=== PATIENT | male | born 1970 | race Caucasian/White ===

== ENCOUNTER 2022-08-14 15:38 | Inpatient (IN) | payer OTHER ==
[~2022-08-14] VITALS: Ht 177.8 cm; Wt 78.9 kg
[2022-08-14] MEDS ORDERED: FAMOTIDINE 20 MG/2 ML VIAL IV STA (15:56)
[2022-08-14] MEDS ORDERED: DICYCLOMINE HCL 20 MG TAB PO ONE (16:00)
[2022-08-14 16:13] LABS: BASOPHILS # (AUTO) 0.1 (0.0-0.1); BASOPHILS % 0.4 % (0.0-1.0); EOSINOPHILS % 0.3 % (0.0-6.0); HEMATOCRIT 49.7 % (38.2-49.6); HEMOGLOBIN 16.6 g/dL (14.0-18.0); LYMPHOCYTES # (AUTO) 1.5 (1.0-3.2); LYMPHOCYTES % 12.5 % (18.0-39.1); MEAN CORPUSCULAR HGB CONC 33.4 g/dL (31-35); MEAN CORPUSCULAR VOLUME 86.7 fL (81-99); MONOCYTES # (AUTO) 0.7 (0.2-0.8); MONOCYTES % 5.7 % (4.4-11.3); NEUTROPHILS # (AUTO) 9.3 (2.1-6.9); NEUTROPHILS % 80.8 % (38.7-80.0); PLATELET COUNT 197 x10e3/uL (140-360); RED BLOOD COUNT 5.73 x10e6/uL (4.3-5.7); RED CELL DISTRIBUTION WIDTH 12.8 % (11.7-14.4)
[2022-08-14 16:31] LABS: LIPASE 151 U/L (8-78)
[2022-08-14 16:33] LABS: ALBUMIN 4.3 g/dL (3.5-5.0); ALBUMIN/GLOBULIN RATIO 1.3 (0.8-2.0); ANION GAP 18.9 mmol/L (8-16); CALCIUM 9.7 mg/dL (8.4-10.2); CREATININE, SERUM 1.19 mg/dL (0.72-1.25); POTASSIUM 3.9 mmol/L (3.5-5.1)
[2022-08-14 16:49] LABS: CLARITY,URINE CLEAR (CLEAR); COLOR,URINE YELLOW (YELLOW); KETONES,URINE 1+ (NEGATIVE); LEUKOCYTE ESTERASE ,URINE NEGATIVE (NEGATIVE); NITRITE,URINE NEGATIVE (NEGATIVE); PROTEIN,URINE DIPSTICK NEGATIVE (NEGATIVE); URINE UROBILINOGEN 0.2 mg/dL (0.2 - 1)
[2022-08-14 17:01] LABS: BACTERIA,URINE MODERATE /HPF; EPITHELIAL CELLS,URINE FEW /LPF; RBC,URINE 0-5 /HPF (0-5)
[2022-08-14] MEDS ORDERED: ONDANSETRON HCL INJ 2MG/ML 2ML 2 MG/ML VIAL IV STA (17:57)
[2022-08-14] MEDS ORDERED: Morphine 4mg INJECTION 4 MG/ML INJ IV ONE (18:00)
[2022-08-14] MEDS ORDERED: ONDANSETRON HCL INJ 2MG/ML 2ML 2 MG/ML VIAL IV PRN (18:15)
[2022-08-14] MEDS ORDERED: SODIUM CHLORIDE FLUSH 10 ML SYR INJ PRN (18:15)
[2022-08-14] MEDS: SODIUM CHLORIDE 0.9% 1000ML 1,000 ML IV SCH (18:21)
[2022-08-14] MEDS ORDERED: SODIUM CHLORIDE 0.9% 1000ML 1,000 ML ONE (18:24)
[2022-08-14] MEDS ORDERED: LOVAZA1 GM PO (18:26)
[2022-08-14] MEDS ORDERED: JARDIANCE25 MG PO (18:26)
[2022-08-14] MEDS ORDERED: CLOPIDOGREL75 MG PO (18:26)
[2022-08-14] MEDS ORDERED: ATORVASTATIN CA20 MG PO (18:26)
[2022-08-14] MEDS ORDERED: LOSARTAN POTASS25 MG PO (18:26)
[2022-08-14] MEDS ORDERED: METFORMIN HCL500 MG PO (18:26)
[2022-08-14 20:00] VITALS: BP 149/84
[2022-08-14] MEDS ORDERED: ASPIRIN81 MG PO (21:55)
[2022-08-14] MEDS: Morphine 4mg INJECTION 4 MG/ML INJ IV PRN (22:11)
[2022-08-14] MEDS: LOSARTAN POTASSIUM 25 MG TAB PO SCH (22:23)
[2022-08-14] MEDS ORDERED: ACETAMINOPHEN 325 MG TAB PO PRN (23:30)
[2022-08-14] MEDS ORDERED: TEMAZEPAM 7.5 MG CAP PO PRN (23:30)
[2022-08-14] MEDS ORDERED: HYDRALAZINE HCL 20 MG/ML VIAL IV PRN (23:30)
[2022-08-15] VITALS (8 sets, daily range): BP systolic 113–162; BP diastolic 61–82
[2022-08-15] MEDS: SODIUM CHLORIDE 0.9% 1000ML 1,000 ML IV SCH ×3 (03:33→16:11)
[2022-08-15 06:09] LABS: BASOPHILS # (AUTO) 0.1 (0.0-0.1); BASOPHILS % 0.4 % (0.0-1.0); EOSINOPHILS # (AUTO) 0.2 (0.0-0.4); EOSINOPHILS % 1.7 % (0.0-6.0); HEMATOCRIT 46.9 % (38.2-49.6); HEMOGLOBIN 16.9 g/dL (14.0-18.0); LYMPHOCYTES # (AUTO) 1.3 (1.0-3.2); LYMPHOCYTES % 9.3 % (18.0-39.1); MEAN CORPUSCULAR HEMOGLOBIN 29.3 pg (28-32); MEAN CORPUSCULAR VOLUME 81.3 fL (81-99); MONOCYTES # (AUTO) 1.1 (0.2-0.8); MONOCYTES % 8.1 % (4.4-11.3); NEUTROPHILS % 79.8 % (38.7-80.0); PLATELET COUNT 184 x10e3/uL (140-360); RED BLOOD COUNT 5.77 x10e6/uL (4.3-5.7); RED CELL DISTRIBUTION WIDTH 12.6 % (11.7-14.4)
[2022-08-15 06:41] LABS: ANION GAP 18.9 mmol/L (8-16); CALCIUM 9.2 mg/dL (8.4-10.2); CREATININE, SERUM 1.05 mg/dL (0.72-1.25); POTASSIUM 3.9 mmol/L (3.5-5.1)
[2022-08-15 06:56] LABS: CHOL/HDL RATIO 3.5 (3.9-4.7); MAGNESIUM 1.9 MG/DL (1.3-2.1); PHOSPHORUS 3.4 MG/DL (2.3-4.7)
[2022-08-15 07:17] LABS: THYROID STIMULATING HORMONE 0.714 uIU/mL (0.350-4.940)
[2022-08-15] MEDS: Morphine 4mg INJECTION 4 MG/ML INJ IV PRN (07:28)
[2022-08-15] MEDS ORDERED: BUPIVACAINE 0.25% 30ML SDV ONE (12:46)
[2022-08-15] MEDS ORDERED: FENTANYL CITRATE/PF 100MCG/2 ML INJ ONE (16:56)
[2022-08-15] MEDS ORDERED: MIDAZOLAM HCL 2 MG/2 ML VIAL ONE (16:56)
[2022-08-15] MEDS ORDERED: DEXTROSE 50% SYRINGE 50 ML IV PRN (20:45)
[2022-08-15] MEDS: INSULIN LISPRO 100 UNIT/1 ML 3ML VIAL SQ SCH (21:00)
[2022-08-15] MEDS: LOSARTAN POTASSIUM 25 MG TAB PO SCH (21:05)
[2022-08-15] MEDS: METFORMIN HCL 500 MG TAB PO SCH (21:05)
[2022-08-15] MEDS: NON-FORMULARY MEDICATION (Empagliflozin (Jardiance) 25 MG) PO SCH (21:16)
[2022-08-15] MEDS: ATORVASTATIN 40 MG TAB PO SCH (21:20)
[2022-08-15] MEDS: CLOPIDOGREL BISULFATE 75 MG TAB PO SCH (21:20)
[2022-08-15] MEDS: OMEGA 3 POLYUNSAT FATTY ACIDS 1000 MG SOFTGEL PO SCH (21:20)
[2022-08-15] MEDS: ASPIRIN 81 MG CHEW TAB PO SCH (21:20)
[2022-08-16] VITALS (8 sets, daily range): BP systolic 104–130; BP diastolic 60–74
[2022-08-16] MEDS: SODIUM CHLORIDE 0.9% 1000ML 1,000 ML IV SCH ×3 (01:04→18:18)
[2022-08-16] MEDS: Morphine 4mg INJECTION 4 MG/ML INJ IV PRN ×4 (01:04→23:10)
[2022-08-16 06:04] LABS: BASOPHILS % 0.1 % (0.0-1.0); HEMATOCRIT 39.5 % (38.2-49.6); LYMPHOCYTES % 9.8 % (18.0-39.1); MEAN CORPUSCULAR HEMOGLOBIN 29.3 pg (28-32); MEAN CORPUSCULAR HGB CONC 35.4 g/dL (31-35); MEAN CORPUSCULAR VOLUME 82.6 fL (81-99); MONOCYTES % 9.1 % (4.4-11.3); NEUTROPHILS # (AUTO) 8.5 (2.1-6.9); NEUTROPHILS % 80.5 % (38.7-80.0); PLATELET COUNT 159 x10e3/uL (140-360); RED BLOOD COUNT 4.78 x10e6/uL (4.3-5.7); RED CELL DISTRIBUTION WIDTH 12.8 % (11.7-14.4)
[2022-08-16 06:49] LABS: ANION GAP 16.8 mmol/L (8-16); CALCIUM 8.3 mg/dL (8.4-10.2); CREATININE, SERUM 1.13 mg/dL (0.72-1.25); POTASSIUM 3.8 mmol/L (3.5-5.1)
[2022-08-16] MEDS: INSULIN LISPRO 100 UNIT/1 ML 3ML VIAL SQ SCH ×4 (07:30→21:00)
[2022-08-16] MEDS: CLOPIDOGREL BISULFATE 75 MG TAB PO SCH (09:00)
[2022-08-16] MEDS: OMEGA 3 POLYUNSAT FATTY ACIDS 1000 MG SOFTGEL PO SCH ×2 (09:00→17:00)
[2022-08-16] MEDS: METFORMIN HCL 500 MG TAB PO SCH ×2 (09:00→17:00)
[2022-08-16] MEDS: ASPIRIN 81 MG CHEW TAB PO SCH (22:08)
[2022-08-16] MEDS: NON-FORMULARY MEDICATION (Empagliflozin (Jardiance) 25 MG) PO SCH (22:08)
[2022-08-16] MEDS: LOSARTAN POTASSIUM 25 MG TAB PO SCH (22:09)
[2022-08-16] MEDS: ATORVASTATIN 40 MG TAB PO SCH (22:10)
[2022-08-17] VITALS: BP 176/87
[2022-08-17 00:02] VITALS: BP 155/81
[2022-08-17] MEDS: Morphine 4mg INJECTION 4 MG/ML INJ IV PRN (02:59)
[2022-08-17 04:00] VITALS: BP 119/77
[2022-08-17 07:11] LABS: BASOPHILS % 0.5 % (0.0-1.0); EOSINOPHILS # (AUTO) 0.1 (0.0-0.4); EOSINOPHILS % 0.8 % (0.0-6.0); HEMATOCRIT 42.5 % (38.2-49.6); HEMOGLOBIN 14.6 g/dL (14.0-18.0); LYMPHOCYTES # (AUTO) 2.1 (1.0-3.2); LYMPHOCYTES % 24.1 % (18.0-39.1); MEAN CORPUSCULAR HEMOGLOBIN 28.9 pg (28-32); MEAN CORPUSCULAR HGB CONC 34.4 g/dL (31-35); MEAN CORPUSCULAR VOLUME 84.2 fL (81-99); MONOCYTES # (AUTO) 0.9 (0.2-0.8); NEUTROPHILS # (AUTO) 5.6 (2.1-6.9); NEUTROPHILS % 64.1 % (38.7-80.0); PLATELET COUNT 148 x10e3/uL (140-360); RED BLOOD COUNT 5.05 x10e6/uL (4.3-5.7)
[2022-08-17] MEDS: INSULIN LISPRO 100 UNIT/1 ML 3ML VIAL SQ SCH (07:30)
[2022-08-17 07:41] LABS: CALCIUM 8.3 mg/dL (8.4-10.2); CREATININE, SERUM 1.02 mg/dL (0.72-1.25)
[2022-08-17] MEDS: CLOPIDOGREL BISULFATE 75 MG TAB PO SCH (09:00)
[2022-08-17] MEDS: METFORMIN HCL 500 MG TAB PO SCH (09:00)
[2022-08-17] MEDS: OMEGA 3 POLYUNSAT FATTY ACIDS 1000 MG SOFTGEL PO SCH (09:00)
[2022-08-17 09:08] VITALS: BP 119/77
[2022-08-17 09:10] VITALS: BP 153/74
[2022-08-17 11:54] VITALS: BP 136/74
[2022-08-17] MEDS ORDERED: PANTOPRAZOLE SOD 40 MG TABEC PO SCH (12:15)
[2022-08-17] MEDS ORDERED: ACETAMINOPHEN 325 MG TAB PO PRN (12:15)
[2022-08-17] MEDS ORDERED: PROTONIX40 MG/ML PO (12:29)
[2022-08-17] MEDS ORDERED: tylenol 3 PO (12:59)
[2022-08-17] MEDS ORDERED: BACTRIM DS TAB1 EACH PO (13:00)
[2022-08-17] MEDS ORDERED: POVIDONE IODINE 0.05% 0.05 % ML PO ONE (13:48)
[2022-08-17] MEDS ORDERED: DEXAMETHASONE SOD PHOS INJ 4 MG/ML SDV IV ONE (13:48)
[2022-08-17] MEDS ORDERED: ONDANSETRON HCL INJ 2MG/ML 2ML 2 MG/ML VIAL IV ONE (13:48)
[2022-08-17] MEDS ORDERED: ROCURONIUM BROMIDE 10 MG/ML 5ML VIAL IV ONE (13:48)
[2022-08-17] MEDS ORDERED: NEOSTIGMINE 1 MG/ML 10ML VIAL IV ONE (13:48)
[2022-08-17] MEDS ORDERED: LIDOCAINE HCL 2% LOCAL INJ 5 ML SDV VIAL INJ ONE (13:48)
[2022-08-17] MEDS ORDERED: EPHEDRINE SULFATE INJ 50 MG/ML VIAL IV ONE (13:48)
[2022-08-17] MEDS ORDERED: PROPOFOL IV EMULSION 10 MG/ML 20 ML VIAL IV ONE (13:48)
[2022-08-17] MEDS ORDERED: KETOROLAC TROMETHAMINE 30 MG/ML VIAL IV ONE (13:48)
[2022-08-17] MEDS ORDERED: GLYCOPYRROLATE INJ 0.2 MG/ML VIAL IV ONE (13:48)
[2022-08-17] MEDS ORDERED: SEVOFLURANE INHAL SOLN 250 ML PEN BTL INH ONE (13:48)
== END 2022-08-17 13:49 | disposition home or self-care (01) | DRG 340 ==
LOC: ER 15:45 → INTOOBSV 18:11 → ERHOLD 18:11 → MED/SURG3 20:06 → OBSVTOIN 08-16 16:47
PROVIDERS: ADMIT Internal Medicine; ATTEND Internal Medicine
PROC: 0DTJ4ZZ Resection of Appendix, Percutaneous Endoscopic Approach (ICD-10-PCS; principal; 2022-08-15 13:49)
DX: K35.32 Acute appendicitis with perforation, localized peritonitis, and gangrene, without abscess (principal); I10 Essential (primary) hypertension; E11.69 Type 2 diabetes mellitus with other specified complication; E78.5 Hyperlipidemia, unspecified; F17.210 Nicotine dependence, cigarettes, uncomplicated; K76.0 Fatty (change of) liver, not elsewhere classified; F12.90 Cannabis use, unspecified, uncomplicated; Z72.89 Other problems related to lifestyle; Z87.442 Personal history of urinary calculi; Z80.3 Family history of malignant neoplasm of breast; Z84.89 Family history of other specified conditions; Z90.5 Acquired absence of kidney; Z20.822 Contact with and (suspected) exposure to COVID-19
CPT/HCPCS: 0223U; 36415; 74176; 80048; 80053; 80061; 81001; 82948; 83036; 83690; 83735; 84100; 84443; 84484; 85025; 88304; 93005; 94799; 99284; G0378; J1100; J1885; J2001; J2250; J2270; J2405; J2543; J2710; J3010; J7030